=== PATIENT | female | born 2000 | race Caucasian/White ===

== ENCOUNTER 2020-09-04 19:40 | Observation (INO) | payer BC, SELFPAY ==
[2020-09-04] VITALS (9 sets, daily range): BP systolic 119–128; BP diastolic 70–78; PULSE 89–113; O2SAT 95–100; BMI 38.5
[2020-09-04 20:22] LABS: Glucose Point of Care 103 mg/dl (65-105)
--- NOTE | 2020-09-04 20:26 | OBADM ---
This patient, Hue Rodriguez, admitted to the OB room Labor/Delivery/Recovery 119 for observation. Patient/family oriented to hospital policies and general routines including ID bracelet, bed and alarms, visiting hours, pain management, procedures, bathroom and other care routines, personal items, smoking policy, room service/diet, and visiting hours. Patient/Family are encouraged to report perceived risks to care and to ask questions if they do not understand what they are told or what they should do.
--- NOTE | 2020-09-28 19:02 | PM.OBTRLD ---
OB - Triage/Final Diagnosis Visit Information Comments/Additional reasons for admission: I have assessed the risk for this patient, Hue Rodriguez, and determined that she would benefit from observation care. Evaluation Laboratory results: Laboratory Tests 09/04/20 20:20 POC Capillary Glucose 103 Final Diagnosis (1) False labor: Code(s): O47.9 - False labor, unspecified Status: Acute
== END 2020-09-04 20:42 | disposition home or self-care (01) ==
PROVIDERS: Admitting Provider Obstetrics & Gynecology; PCP Nurse Practitioner Family; Visit Provider Obstetrics & Gynecology
DX: O47.02 False labor before 37 completed weeks of gestation, second trimester (principal); Z3A.21 21 weeks gestation of pregnancy
CPT/HCPCS: 82948; G0378; G0379

== ENCOUNTER 2020-12-30 10:16 | Inpatient (IN) | payer BC, SELFPAY ==
[2020-12-30] VITALS (19 sets, daily range): BP systolic 98–134; BP diastolic 57–81; PULSE 87–111; TEMP 36.7; BMI 40.0
--- NOTE | 2020-12-30 14:18 | LDADM ---
This patient, Hue Weaver, was admitted to Labor/Delivery/Recovery 109 on 12/30/20 at 10:16. Plans for labor, pain management and were discussed with patient. Patient/family oriented to hospital policies and general routines including ID bracelet, bed and alarms, visiting hours, pain management, procedures, bathroom and other care routines, personal items, smoking policy, room service/diet and guest tray routines, security routines, and visiting hours. Patient/Family are encouraged to report perceived risks to care and to ask questions if they do not understand what they are told or what they should do. See OBIX for further documentation.
[2020-12-30 14:48] LABS: Basophils Percent Auto 0.2 % (0.2-1.2); Eosinophils Percent Auto 0.3 % (0-4.4); Hematocrit 39.8 % (37.0-47.0); Hemoglobin 13.3 g/dL (12.0-15.0); Immature Granulocyte Absolute 0.06 K/mm3 (0.00-0.031); Immature Granulocyte Percent A 0.5 % (0-0.5); Lymphocytes Absolute Auto 2.72 K/mm3 (0.9-3.2); Lymphocytes Percent Auto 22.5 % (18.3-44.2); Mean Corpuscular HGB Conc 33.4 g/dl (32-36); Mean Corpuscular Hemoglobin 29.3 pg (26-34); Mean Corpuscular Volume 87.7 fl (80-100); Mean Platelet Volume 11.3 fl (7.4-10.4); Monocytes Absolute Auto 0.8 K/mm3 (0.1-0.6); Monocytes Percent Auto 6.5 % (2.6-8.5); Neutrophils Absolute Auto 8.4 K/mm3 (1.3-6.7); Platelet Count Result 217 k/mm3 (150-375); Red Blood Count 4.54 M/mm3 (4.2-5.4); Red Cell Distribution Width 14.4 % (11.5-14.5); White Blood Count 12.1 K/mm3 (4.5-10.0)
[2020-12-30 15:08] LABS: Alanine Aminotransferase 30 U/L (4-35); Albumin Level 4.1 g/dL (3.5-5.1); Alkaline Phosphatase 224 U/L (38-126); Anion Gap 9 mmol/L (8-16); Aspartate Amino Transferase 25 U/L (14-36); Bilirubin,Total 0.7 mg/dL (0.2-1.3); Blood Urea Nitrogen 6 mg/dL (7-17); Calcium 9.6 mg/dL (8.4-10.2); Carbon Dioxide 20 mmol/L (22-30); Chloride 107 mmol/L (98-107); Estimated CRCL calculation 207 ml/min; Estimated Glomerular Filt Rate > 60; Glucose 82 mg/dL (65-110); Potassium 4.3 mmol/L (3.4-5.0); Sodium 136 mmol/L (137-145)
[2020-12-30] MEDS: DINOPROSTONE 10 MG VAG INSERT VAGINAL (15:15)
[2020-12-30 16:18] LABS: Uric Acid 5.8 mg/dL (2.5-7.5)
[2020-12-31] VITALS (276 sets, daily range): BP systolic 62–147; BP diastolic 40–133; PULSE 25–154; TEMP 36.2–37.2; O2SAT 68–100
[2020-12-31] MEDS: LACTATED RINGERS 1,000 ML 125 ML IV CONT ×3 (02:45→18:20)
[2020-12-31] MEDS: fentaNYL CITRATE INJ (*CRX) 100 MCG/2 ML VIAL IV PUSH (04:30)
[2020-12-31] MEDS: OXYTOCIN 30 UNITS/NS 500 ML 30 UNITS/500 ML BAG 6 UNITS IV CONT (05:29)
[2020-12-31 07:28] LABS: Rapid Plasma Reagin Non-Reactive (NonReactive)
--- NOTE | 2020-12-31 08:03 | WPDOBADMIT ---
Obstetrics - Admit Note Admission Note: 20 y/o G1 @ 38w4d here for induction of labor d/t GHTN and variable deceleration in the office on NST. VSS Contractions regular FHR category 1 Cervix 2/70/-2 AROM moderate amount of clear odorless fluid Anticipate record reviewed. No pertinent additions to the history and/or any subsequent changes in the physical findings that are not consistent with the expected course of the were found. Additions to the history and/or subsequent changes in the physical findings follow. None.
--- NOTE | 2020-12-31 10:04 | WPDANESEPPF ---
Anes - Initial Pre Proc Eval Date/Time: 12/31/20 10:04 Surgeon: Chucho Mccray MD Pre Op Diagnosis: Pre admission Patient Data Age: 20 Gender: F Height: 1.75 m Weight: 123 kg Last Vital Signs Temp 36.6 C 12/31/20 09:30 Pulse 94 12/31/20 10:01 BP 116/68 12/31/20 10:01 Pulse Ox 97 12/31/20 10:03 Allergies Allergy/AdvReac Type Severity Reaction Status Date / Time No Known Allergies Allergy Verified 12/12/20 12:44 Home Medications Medication Instructions Recorded Confirmed Type PNV cmb#95-ferrous fumarate-FA 1 tablet PO DAILY 12/12/20 12/30/20 History [] Laboratory Tests 12/30/20 12/30/20 12/30/20 14:35 14:35 14:35 WBC 12.1 K/mm3 H K/mm3 (4.5-10.0) RBC 4.54 M/mm3 M/mm3 (4.2-5.4) Hgb 13.3 g/dL g/dL (12.0-15.0) Hct 39.8 % % (37.0-47.0) MCV 87.7 fl fl (80-100) MCH 29.3 pg pg (26-34) MCHC 33.4 g/dl g/dl (32-36) RDW 14.4 % % (11.5-14.5) Plt Count 217 k/mm3 k/mm3 (150-375) MPV 11.3 fl H fl (7.4-10.4) Immature Gran % (Auto) 0.5 % % (0-0.5) Neut % (Auto) 70.0 % % (45.5-73.1) Lymph % (Auto) 22.5 % % (18.3-44.2) [place] % (Auto) 6.5 % % (2.6-8.5) Eos % (Auto) 0.3 % % (0-4.4) Baso % (Auto) 0.2 % % (0.2-1.2) Lymph # (Auto) 2.72 K/mm3 K/mm3 (0.9-3.2) [place] # (Auto) 0.8 K/mm3 H K/mm3 (0.1-0.6) Eos # (Auto) 0.0 K/mm3 K/mm3 (0-0.3) Baso # (Auto) 0.0 K/mm3 K/mm3 (0.0-0.1) Abs Immat Gran (auto) 0.06 K/mm3 H K/mm3 (0.00-0.031) Absolute Neuts (auto) 8.4 K/mm3 H K/mm3 (1.3-6.7) Absolute Nucleated RBC 0.0 K/mm3 K/mm3 (0.0-0.012) Nucleated RBC % 0.0 % % (0.0-0.2) Sodium Potassium Chloride Carbon Dioxide Anion Gap BUN Creatinine Estim Creat Clear Calc Estimated GFR Glucose Uric Acid 5.8 mg/dL mg/dL (2.5-7.5) Calcium Total Bilirubin AST ALT Alkaline Phosphatase Total Protein Albumin RPR Non-reactive (NonReactive) Blood Type Antibody Screen 12/30/20 12/30/20 14:35 14:35 WBC RBC Hgb Hct MCV MCH MCHC RDW Plt Count MPV Immature Gran % (Auto) Neut % (Auto) Lymph % (Auto) [place] % (Auto) Eos % (Auto) Baso % (Auto) Lymph # (Auto) [place] # (Auto) Eos # (Auto) Baso # (Auto) Abs Immat Gran (auto) Absolute Neuts (auto) Absolute Nucleated RBC Nucleated RBC % Sodium 136 mmol/L L mmol/L (137-145) Potassium 4.3 mmol/L mmol/L (3.4-5.0) Chloride 107 mmol/L mmol/L (98-107) Carbon Dioxide 20 mmol/L L mmol/L (22-30) Anion Gap 9 mmol/L mmol/L (8-16) BUN 6 mg/dL L mg/dL (7-17) Creatinine 0.50 mg/dL L mg/dL (0.7-1.0) Estim Creat Clear Calc 207 ml/min ml/min Estimated GFR > 60 (59 - ) Glucose 82 mg/dL mg/dL (65-110) Uric Acid Calcium 9.6 mg/dL mg/dL (8.4-10.2) Total Bilirubin 0.7 mg/dL mg/dL (0.2-1.3) AST 25 U/L U/L (14-36) ALT 30 U/L U/L (4-35) Alkaline Phosphatase 224 U/L H U/L (38-126) Total Protein 8.0 g/dL g/dL (6.3-8.2) Albumin 4.1 g/dL g/dL (3.5-5.1) RPR Blood Type O Positive Antibody Screen Negative Patient hx anesthesia problems: none Family hx anesthesia problems: none Results Review: All pre-operative results and documents have been reviewed as part of the pre-op
--- NOTE | 2020-12-31 23:22 | PM.OBPRVD ---
OB - Delivery Note Procedure Delivery date: 12/31/20 Intrapartal events: None Induction method: per pitocin protocol Delivery monitor: external FHT, external uterine and internal uterine Route of delivery: Laceration Description: Perineal - 1st Degree (perineum laceration bilateral up into lower labia) and Vaginal - 2nd Degree Quantitative Blood Loss (ml): 608 Anesthesia type: Epidural Narrative: Mother and baby in stable condition. Cord gasses collected and handed off to nursery staff. [place] Baby Date of : 12/31/20 Weeks of gestation at delivery: 38 Weight (pounds): 7 Weight (ounces): 4 presentation: vertex position: Left Occiput Anterior Placenta delivery description: Spontaneous cord vessel description: Delayed Cord Clamping
[2020-12-31] MEDS: OXYTOCIN 30 UNITS/NS 500 ML 30 UNITS/500 ML BAG 125 UNITS IV CONT (23:24)
[2021-01-01] VITALS (11 sets, daily range): BP systolic 93–127; BP diastolic 56–107; PULSE 82–226; RESP 16–18; TEMP 35.9–37.2; O2SAT 95–97
[2021-01-01] MEDS: BENZOCAINE 20% AER SPR (*SP) 56 GM CAN 1 SPRAY TOPICAL (01:33)
[2021-01-01] MEDS: WITCH HAZEL 40 PADS 1 PAD TOPICAL (01:33)
--- NOTE | 2021-01-01 02:47 | OBPPTRN ---
Patient transferred to post room #287 via wheelchair. Support person present. Oriented to unit, room, information board, rooming in, admission packet and security measures. Patient verbalizes understanding.
[2021-01-01 05:56] LABS: Hematocrit 31.5 % (37.0-47.0); Hemoglobin 10.2 g/dL (12.0-15.0)
--- NOTE | 2021-01-01 07:32 | WPDANLDPN2 ---
Anes-Prog Note L&D Date/Time: 01/01/21 07:32 Comfortable throughout: labor and delivery Neuraxial method: epidural Epidural/Spinal procedure site: clean & non-tender Neuro status: Neuro function grossly intact. Cardiovascular status: normal Respiratory status: normal Airway patency: baseline Mental status: baseline Post-Op hydration status: normal Vital Signs: Last Vital Signs Temp 98.5 F 01/01/21 02:50 Pulse 102 H 01/01/21 02:50 Resp 16 01/01/21 02:50 BP 115/74 01/01/21 02:50 Pulse Ox 96 01/01/21 02:50 Pain score (VAS): 0/10 I/O: Intake & Output 12/31/20 12/31/20 01/01/21 15:59 23:59 07:59 Intake Total 1000 1000 500 Output Total 608 148 Balance 1000 392 352 Post-procedural complaints: none Patient feedback: Patient satisfied with anesthetic care.
--- NOTE | 2021-01-01 07:54 | PM.OBPNVD ---
OB - PN: Subj Subjective Date/time seen: 01/01/21 07:54 Patient comments: no complaints baby status: doing well OB - PN: Obj Data Labs CBC & Chem 7: 01/01/21 05:00 12/30/20 14:35 Labs: Laboratory Results - last 24 hr 01/01/21 05:00 Hgb 10.2 L D Hct 31.5 L OB - PN A/P Plan day: 1 Plan: routine care Time Spent With Patient Time: Total time spent is greater than 50% in coordination of care (as documented) at patient's floor/unit and/or counseling patient: Time with patient: less than 15 minutes Review of Systems Review of Systems: All systems reviewed & are unremarkable except as noted in HPI and below Exam Narrative: Fundus firm and vaginal flow controlled. No lower ext redness, warmth, or edema. Negative homans. Denies h/a, v/d or e/p. Reflexes normal. Const: General: comfortable Chest: Breast/axilla inspection: normal inspection of the breasts Resp: Effort & Inspection: normal respiratory effort Cardio: Rate: regular rate GI: GI Palp: Yes Soft to palpation Psych: Appearance: grossly normal Affect: normal affect Attitude: cooperative Thought content: Yes Normal thought content present Judgement: Good judgement present (Psych)
[2021-01-01] MEDS: MULTIVIT/MIN/PREN/FOL AC/IRON TABLET 1 TAB PO (08:54)
[2021-01-01] MEDS: IBUPROFEN 600 MG TABLET PO ×2 (08:54→23:15)
--- NOTE | 2021-01-01 09:00 | PC.NURSE ---
Mother called out for assist with feeding., reporting has been sleepy and difficult to latch. Mother was given a nipple shield due to flat nipples and was unable to draw nipple in. Infant is able to freely thrust tongue past gum ridge and flange both lips. Skin is intact on both nipples, no redness and bruising noted. Discussed nipple shield precautions and possible complications.Instructions given on application and cleaning of shield. Patient able to return demonstration on proper application of shield. Discussed the need to initiate pumping if continues to nurse with the shield. Patient verbalizes understanding. Reviewed infant feeding cues, frequencies, duration of feedings, feeding elimination flow sheet, and signs of adequate intake. Demonstrated stimulation techniques to wake for feeding. Assisted with to breast. Reviewed positioning/alignment in cross cradle, holding breast in ?U? hold and guided asymmetrical latch on. Reviewed rational for each. With shield in place, able to latch correctly within a few attempts. nursed eagerly with steady draws and occasional swallowing noted for short bursts followed with long pausing. Reviewed signs of a correct latch, effective nursing and suck swallow ratio. Infant was able to maintain latch without discomfort to mother. Suggested mother stimulate while feeding to increase stimulate, increase intake and to assist with maintaining deep latch. Demonstrated how to adjust latch more deeply while feeding if needed. Discussed the difference of effective vs ineffective feeding. Reviewed infant is latching with good burst of suckling, she is not feeding consistently with adequate milk transfer at this time and continues to need to be supplement after . Feeding options discussed, Feeding Plan is for mother to put infant to breast each feeding for up to 15 minutes, then pace feed supplement 20 mls and pump for 10-15 minutes. Parents are comfortable with supplementation and pumping. If infant begins to nurse effectively with long draws and frequent swallowing noted, infant may decrease supplementation and discontinue pumping. Suggested mother have [employer] engineering professor observe feeding before discontinuing supplementation. Nipple care reviewed of lanolin after feedings, warm compresses as needed. When feeding at breast completed, assisted parents with paced feeding. Instructed mother to call out for RN assistance if she is unable to latch for feeding or she has discomfort with nursing. Instructed feeding should be initiated three hours from start of last feeding or if feeding cues are noted before. Mother voiced understanding of information shared.
--- NOTE | 2021-01-01 12:30 | PC.NURSE ---
Mother called out for assist with feeding. With shield in place, able to latch correctly within a few attempts. nursed eagerly with steady draws and occasional swallowing noted for short bursts followed with long pausing. Infant more awake and eager with feeding than last feeding. Reviewed signs of a correct latch, effective nursing and suck swallow ratio. Infant was able to maintain latch without discomfort to mother. Suggested mother stimulate while feeding to increase stimulate, increase intake and to assist with maintaining deep latch. Demonstrated how to adjust latch more deeply while feeding if needed. Discussed the difference of effective vs ineffective feeding. Reviewed is latching with good burst of suckling, she is not feeding consistently with adequate milk transfer at this time and continues to need to be supplement after . FOB will supplement after feeding.
--- NOTE | 2021-01-01 13:05 | PC.NURSE ---
Breast pump provided due to ineffective feeding and nipple shield use. Instructions given on breast pump care and usage, pumping schedule, nipple care, and collection and storage of breast milk. Encouraged [id number], breast massage and manual expression to stimulate supply. Assessed patient for correct flange size, placement and draw. Patient verbalizes and demonstrates understanding of instructions.
[2021-01-02 05:25] VITALS: BP 106/69; PULSE 86; RESP 16; TEMP 36.7
[2021-01-02] MEDS: MULTIVIT/MIN/PREN/FOL AC/IRON TABLET 1 TAB PO (07:28)
[2021-01-02] MEDS: IBUPROFEN 600 MG TABLET PO (07:28)
--- NOTE | 2021-01-02 07:40 | PM.OBPNVD ---
OB - PN: Subj Subjective Date/time seen: 01/02/21 07:40 Patient comments: no complaints baby status: doing well OB - PN: Obj Data Labs CBC & Chem 7: 01/01/21 05:00 12/30/20 14:35 OB - PN A/P Plan day: 2 Plan: routine care and discharge home Time Spent With Patient Time: Total time spent is greater than 50% in coordination of care (as documented) at patient's floor/unit and/or counseling patient: Review of Systems Review of Systems: All systems reviewed & are unremarkable except as noted in HPI and below Exam Const: General: cooperative Orientation/consciousness: patient oriented x3 Psych: Attitude: cooperative Thought content: Yes Normal thought content present Judgement: Good judgement present (Psych)
--- NOTE | 2021-01-02 07:41 | PM.OBDSVD ---
DS: Admitting Diagnosis Discharge Date 01/02/21 Admitting Diagnosis IOL OB - DS: Summary OB Procedures : None OB Procedures Intrapartum: Spontaneous Vag Delivery OB Procedures: : None Time Spent with Patient Time attestation: Total time spent providing and/or coordinating discharge services: DS: Data Data Completed and Pending Pending studies at discharge: Pending at discharge 12/31/20 22:39 Surgical [PTH] Routine Discharge Plan Discharge Attending physician on discharge: Chucho Mccray Discharging Clinician: Alia Hernandez Patient Disposition: Home, Self-Care Activity: pelvic rest Diet: regular Patient Instructions: Antibiotic Form Stand Alone Forms: General Discharge Information Follow-up/Referrals: Citlali Alvarez CNM [Certified Nurse Lieutenant [employer]] - 4 Weeks Discharge Medications: New ibuprofen 600 mg Tablet 600 mg PO Q6H PRN (Reason: Cramping) Qty: 30 RF: 0 Continued PNV cmb#95-ferrous fumarate-FA [] 28 mg iron- 800 mcg Tablet 1 tablet PO DAILY RF: 0 Date of admission: 12/30/20 10:16 Primary Care Provider: Markus,Tiara Admitting Provider: Chucho Mccray Attending physician on admission: Chucho Mccray Condition: Stable
[2021-01-02 08:00] VITALS: BP 113/65; PULSE 73; RESP 18; TEMP 36.6; O2SAT 98
--- NOTE | 2021-01-02 09:15 | PC.NURSE ---
Consult with pt., mother reports she will switch to bottle feeding and pumping. Reviewed for best stimulation mother should pump every three hours for 15-20 minutes to stimulate milk supply. Discussed it may be day3-5 before her milk is in. Mother will give as much as desires each feeding of EBM/formula. Mother has a double electric pump for home use and is comfortable with use. Mother is feeding as required and waking to feed if needed. is currently meeting outcomes for weight, output, jaundice and feeding frequencies. Mother states she feels confident to continue pumping and bottle feeding at home. Reviewed transition to breast milk, signs of adequate intake, and engorgement/relief. Instructed to call ICP if intake/output less than required. Reviewed regular medications mother is taking. Information provided per Isabelle. Reviewed community resources on the [employer] website and in the Mom/Baby guide. Information on outpatient services provided. Mother has no further questions at this time.
--- NOTE | 2021-01-02 10:51 | PC.NURSE ---
Patient viewed the discharge video Mother & Baby Care, The First Two Weeks . Patient was given the opportunity and encouraged to ask questions. Patient verbalized understanding of information shared and has been given the mother/baby guide for home reference.
[2021-01-02 11:41] VITALS: BP 116/74; PULSE 91; RESP 18; TEMP 36.6; O2SAT 98
[2021-01-03 09:20] VITALS: BP 121/75; PULSE 86; RESP 20; TEMP 37.1; O2SAT 100
== END 2021-01-02 12:55 | disposition home or self-care (01) | DRG 807 ==
LOC: ANHLDR 12-31 13:44 → ANHOB2 01-01 03:33
PROVIDERS: Admitting Provider Obstetrics & Gynecology; PCP Nurse Practitioner Family; Referring Provider Advanced Practice Midwife; Visit Provider Obstetrics & Gynecology
DX: O13.4 Gestational [pregnancy-induced] hypertension without significant proteinuria, complicating childbirth (principal); Z37.0 Single live birth; O76 Abnormality in fetal heart rate and rhythm complicating labor and delivery; O70.1 Second degree perineal laceration during delivery; Z3A.38 38 weeks gestation of pregnancy
CPT/HCPCS: 36415; 80053; 84550; 85014; 85018; 85025; 86592; 86850; 86900; 86901; 88307; A9270; J2590; J2795; J3010; J7120